=== PATIENT | female | born 1990 | race Caucasian/White ===

== ENCOUNTER → 2018-05-02 17:28 | Outpatient (CLI) | payer OTHER, SELFPAY ==
[2018-05-02 14:05] VITALS: BMI 44.6
[2018-05-06 12:55] LABS: HPV Reflexed? NOT INDICATED
== END ==
PROVIDERS: Visit Provider Obstetrics & Gynecology
DX: Z12.4 Encounter for screening for malignant neoplasm of cervix (principal)
CPT/HCPCS: 87624; 88175; G0145

== ENCOUNTER → 2020-05-27 16:38 | Outpatient (CLI) | payer BC, SELFPAY ==
[2020-05-27 14:01] VITALS: BMI 41.8
[2020-06-04 09:54] LABS: HPV APTIMA, High Risk Negative (Negative); HPV Reflexed? YES, CHARGE PATIENT
== END ==
PROVIDERS: Referring Provider Obstetrics & Gynecology; Visit Provider Obstetrics & Gynecology
DX: Z12.4 Encounter for screening for malignant neoplasm of cervix (principal)
CPT/HCPCS: 87624; 88175; G0145

== ENCOUNTER → 2020-07-29 09:28 | Outpatient (CLI) | payer BC, SELFPAY ==
[2020-07-29 09:21] VITALS: BMI 41.8
[2020-07-29 11:06] LABS: Progesterone Level 1.13 ng/mL (See Comment)
[2020-07-29 11:13] LABS: Anion Gap 3 (5-15); BUN 11 mg/dL (7-18); BUN/Creat Ratio 13.9 RATIO (10-20); Chloride 103 mmol/L (98-107); Cholesterol 267 mg/dL (200); Creatinine, Serum 0.79 mg/dL (0.55-1.02); EST Glomerular Filtration Rate 91 mL/min (>60); Est Glom Filt Rate - Afr Amer 110 mL/min (>60); Glucose 104 mg/dL (74-106); High Density Lipoprotein 64 mg/dL; Potassium 3.9 mmol/L (3.5-5.1); Sodium Level 137 mmol/L (136-145); Thyroid Stim Hormone (TSH) 1.35 uIU/mL (0.358-3.74); Triglycerides 64 mg/dL; Very Low Density Lipoprotein 13 mg/dL (5-40)
[2020-08-01 12:08] LABS: Testosterone, % Free 1.74 % (0.50-2.80)
[2020-08-01 15:35] LABS: Testosterone, Total 40 ng/dL (13-71)
[2020-08-06 09:33] LABS: 17-Hydroxyprogesterone 206 ng/dL (.)
== END ==
PROVIDERS: Referring Provider Obstetrics & Gynecology; Visit Provider Obstetrics & Gynecology
DX: L68.0 Hirsutism (principal); Z87.42 Personal history of other diseases of the female genital tract
CPT/HCPCS: 36415; 80048; 80061; 82306; 82627; 83498; 84144; 84402; 84403; 84443; 82626

== ENCOUNTER → 2021-10-08 | Outpatient (CLI) | payer OTHER, SELFPAY ==
[2021-10-13 14:15] LABS: HPV APTIMA, High Risk Negative (Negative)
== END | disposition home or self-care (01) ==
LOC: LABSPEC 10-09 08:16
PROVIDERS: Visit Provider Nurse Practitioner Women's Health
DX: Z12.4 Encounter for screening for malignant neoplasm of cervix (principal)
CPT/HCPCS: 87624; 88175; G0145

== ENCOUNTER 2022-01-08 19:04 | Emergency (ER) | payer OTHER, SELFPAY ==
[2022-01-08 19:05] VITALS: BP 132/95; PULSE 136; RESP 16; TEMP 36.7; O2SAT 97; BMI 44.9
[2022-01-08 19:17] VITALS: TEMP 38.5
--- NOTE | 2022-01-08 19:23 | RAD_ITS ---
STUDY: X-RAY CHEST REASON FOR EXAM: Female, 31 years old. CHEST PAIN cough and fever TECHNIQUE: XR Chest 1 View COMPARISON: None FINDINGS: There is no demonstrated pleural abnormality. Normal size heart. Normal mediastinum and kerry. Normal visualized pulmonary arteries. Normal visualized aortic arch and descending thoracic aorta. Normal visualized thoracic spine. Normal visualized ribs, clavicles, and shoulders. There is no demonstrated abnormality of the visualized soft tissue structures of the upper abdomen. RAD/Chest 1 View (Portable) IMPRESSION: There are no acute findings. Electronically Signed: Janak Azar MD at 19:37 EDT ,
--- NOTE | 2022-01-08 19:24 | EX.ED.DYSGE1 ---
HPI History of Present Illness Chief Complaint: General Illness Informant: patient Narrative Narrative: 1-year-old female presenting to the emergency room chief complaint of tachycardia. Patient states that she developed a fever up to 103 and has also had cough some sore throat and vomiting today. She denies any diarrhea ear pain or rashes. She notes a headache. She states that she went to the urgent care and they told her that her heart rate was high and that she should come to the emergency room. Here in the emergency room on the monitor during my examination her heart rate is 122 and she is febrile at 101.3. She is satting normally at 97 to 98%. No rashes. Significant other is not sick. [facility] Medical History PRASAD I (cervical intraepithelial neoplasia I) Home Medications citalopram 40 mg tablet 40 mg PO DAILY #90 tabs 10/08/21 [Rx Last Taken Unknown] norgestimate 0.25 mg-ethinyl estradiol 35 mcg tablet (Sprintec (28)) 1 tab PO DAILY #84 tabs 10/08/21 [Rx Last Taken Unknown] spironolactone 50 mg tablet 50 mg PO BID #180 tabs 10/08/21 [Rx Last Taken Unknown] Allergy/AdvReac Type Severity Reaction Status Date / Time penicillin G Allergy Mild stops Verified 01/08/22 19:19 breathing Family History Mother Asthma Father Hypertension Seizures Hyperlipidemia Depression Lupus Grandmother Colon cancer Grandfather Cancer pancreatic, liver Surgical History History of removal of ovarian cyst History of tonsillectomy Social History current occupational status: employed current occupation: [employer] Smoking Status: Never smoker alcohol intake: current details: social substance use type: does not use caffeine: Yes what type of physical activity do you participate in: other details: 20,000 steps per day at work seatbelt use: always do you feel safe at home: Yes additional social history: [employer] ROS ED Constitutional Constitutional ED: Reports chills and fever(s); Denies weight loss Eyes Eyes: Denies change in vision or diplopia ENT ENT ED: Reports sore throat; Denies ear pain or rhinorrhea Cardiovascular Cardiovascular: Denies chest pain, orthopnea, palpitations or racing heartbeat Respiratory/Chest Respiratory/Chest: Reports cough; Denies dyspnea or orthopnea Gastrointestinal Gastrointestinal: Reports nausea and vomiting; Denies abdominal pain or diarrhea Genitourinary Genitourinary ED: Denies dysuria, hematuria or urinary frequency Musculoskeletal Musculoskeletal: Reports back pain and myalgias; Denies arthralgias Integumentary Denies abscess or rash Neurologic Neurologic: Reports headache(s); Denies weakness Psychiatric Psychiatric: Denies anxiety, depression, suicidal ideation or suicidal thoughts Endocrine Endocrinology: Denies polydipsia, polyphagia or polyuria Allergic/Immunologic Allergic/Immunologic ED: Denies mouth swelling, tongue swelling or urticaria EXAM Physical Exam Const Vital Signs: 01/08/22 19:05 01/08/22 19:16 01/08/22 19:17 Temperature 98.1 F 101.3 F H Temperature Source Temporal Oral Pulse Rate 136 H Respiratory Rate 16 Respiratory Effort Normal Non-Labored Respiratory Pattern Normal Blood Pressure 132/95 H Blood Pressure Mean 107 Pulse Ox 97 Oxygen Delivery Method Room Air Positive well nourished and well developed General Appearance ED: well developed HEENT Reports normocephalic, head/scalp atraumatic and moist mucous membranes Eyes PERRL and EOMs intact bilaterally Neck no lymphadenopathy, supple and no JVD Resp normal respiratory effort and clear to auscultation bilaterally Cardio regular rate and no murmurs Rate: tachycardic GI normal to inspection, nondistended, normoactive bowel sounds and non-tender Palpation: soft Back/Spine no CVA tenderness and normal ROM Extremity normal to inspection General Extremety ED: Negative for edema General Extremity: Negative for edema Neuro oriented x3 and CN's II-XII intact bilaterally Sensorium / Orientation: alert Motor Exam: strength 5/5 throughout Psych mental status grossly normal Mood & Affect: Negative for depressed or tearful Skin no rashes or lesions noted and no wounds MDM MDM MDM Narrative Medical decision making narrative: Patient was placed on the monitor and she is in a sinus tachycardic rhythm. My interpretation of the chest x-ray is no acute process. The patient received a dose of Motrin as well as Zofran. Influenza and COVID testing was obtained and these were negative. Clinically I think the patient appears well. I believe her tachycardia is due to the fever. I do think she would get better with conservative treatment. Radiography Diagnostic Testing: Clinical Impression(s) from Imaging Studies Chest X-Ray 01/08/22 19:23 IMPRESSION: There are no acute findings. Electronically Signed: Janak Azar MD at 19:37 EDT Reading Location ID and State: [facility] / [place] , Service support , Discharge Plan Triage Chief Complaint: General Illness ED Provider: Lc Carrillo Dx/Rx/DC Orders Clinical Impression: Acute viral syndrome, Sinus tachycardia Instructions: ED Viral Syndrome (Adult) Prescriptions: No Action norgestimate-ethinyl estradiol [Sprintec (28)] 0.25-35 mg-mcg tablet 1 tab PO DAILY Qty: 84 4RF citalopram 40 mg tablet 40 mg PO DAILY Qty: 90 4RF spironolactone 50 mg tablet 50 mg PO BID Qty: 180 4RF Primary Care Provider: Care Physician,No Primary Referrals: Care Physician,No Primary [Primary Care Provider] - Disposition Disposition: Home, Self Care
[2022-01-08] MEDS: Ondansetron ODT 4 MG Tablet PO (19:30)
[2022-01-08] MEDS: Ibuprofen 400 MG Tablet 800 MG PO (19:31)
[2022-01-08 20:20] VITALS: TEMP 37.2
== END 2022-01-08 20:23 | disposition home or self-care (01) ==
PROVIDERS: Emergency Provider Emergency Medicine; Visit Provider Emergency Medicine
DX: B34.9 Viral infection, unspecified (principal); R00.0 Tachycardia, unspecified; R51.9 Headache, unspecified
CPT/HCPCS: 71045; 87428; 99284

== ENCOUNTER → 2022-10-12 | Outpatient (CLI) | payer OTHER, SELFPAY ==
[2022-10-15 22:07] LABS: HPV APTIMA, High Risk Negative (Negative)
== END | disposition home or self-care (01) ==
PROVIDERS: Visit Provider Obstetrics & Gynecology
DX: Z12.4 Encounter for screening for malignant neoplasm of cervix (principal)
CPT/HCPCS: 87624; 88175; G0145

== ENCOUNTER → 2024-01-14 | Outpatient (CLI) | payer BC, SELFPAY ==
[2024-01-14 12:27] LABS: Absolute Lymphocyte Count 2.55 X10^3/uL (0.83-4.51); Absolute Neutrophil Count 5.8 X10^3/uL (2.0-7.7); Basophil# 0.05 X10^3/uL; Basophil% 0.5 % (0-1); Eosinophil# 0.36 X10^3/uL; Eosinophils% 3.8 % (0-5); Hematocrit 42.4 % (37-47); Hemoglobin 13.8 g/dL (12.0-15.0); Lymphocyte # 2.55 X10^3/ul (0.83-4.51); Lymphocyte % 27.2 % (19-41); Mean Corp Hgb Conc 32.5 g/dL (32-36); Mean Corpuscular Hgb 28.5 pg (27.0-32.0); Mean Corpuscular Volume 87.6 fL (81-99); Monocyte# 0.53 X10^3/uL; Monocyte% 5.7 % (0-10); NRBC Flagged by Analyzer 0 % (0-5); Neutrophil # 5.84 X10^3/uL (2.7-7.7); Neutrophil % 62.5 % (47-70); Platelet Count 420 K/mm3 (150-450); RBC Distribution Width SD 41.5 fl (35.1-43.9); Red Blood Count 4.84 M/mm3 (4.2-5.4); White Blood Count 9.4 K/mm3 (4.4-11.0)
[2024-01-14 13:26] LABS: Hemoglobin A1c 6.8 % (3.8-5.6)
[2024-01-14 13:27] LABS: ALB/GLOB Ratio 1.1 RATIO (0.9-2.4); AST(SGOT) 16 U/L (15-37); Alanine Aminotransfer ALT/SGPT 27 U/L (13-56); Albumin, Serum 4.1 g/dL (3.2-5.0); Alkaline Phosphatase 58 U/L (45-117); Anion Gap 6 (5-15); BUN 9 mg/dL (7-18); BUN/Creat Ratio 10.6 RATIO (10-20); Calcium,Total 9.5 mg/dL (8.5-10.1); Chloride 106 mmol/L (98-107); Creatinine, Serum 0.85 mg/dL (0.55-1.02); EST Glomerular Filtration Rate 82 mL/min (>60); Est Glom Filt Rate - Afr Amer 99 mL/min (>60); Globulin 3.8 g/dL (2.2-4.2); Glucose 133 mg/dL (74-106); Potassium 3.9 mmol/L (3.5-5.1); Protein, Total 7.9 g/dL (6.4-8.2); Sodium Level 136 mmol/L (136-145)
[2024-01-22 16:09] LABS: Testosterone Free 1.8 pg/mL (0.0-4.2); Testosterone, % Free 1.94 % (0.50-2.80); Testosterone, Free 1.09 ng/dL (0.10-0.85); Testosterone, Total 56 ng/dL (8-60)
[2024-01-27 14:10] LABS: Vitamin D 1,25-Dihydroxy 38.6 pg/mL (24.8-81.5)
== END | disposition home or self-care (01) ==
PROVIDERS: Referring Provider Obstetrics & Gynecology; Visit Provider Obstetrics & Gynecology
DX: Z87.42 Personal history of other diseases of the female genital tract (principal)
CPT/HCPCS: 36415; 80053; 82627; 82652; 83036; 83498; 84402; 84403; 85025; 82626

== ENCOUNTER 2024-06-05 18:55 | Emergency (ER) | payer BC, SELFPAY ==
[2024-06-05 18:56] VITALS: BP 139/93; PULSE 108; RESP 16; TEMP 36.7; O2SAT 100; BMI 36.8
[2024-06-05 18:59] VITALS: BP 139/93; PULSE 108; RESP 16; TEMP 36.7; O2SAT 100
[2024-06-05 19:17] LABS: Absolute Lymphocyte Count 2.44 X10^3/uL (0.83-4.51); Absolute Neutrophil Count 7.5 X10^3/uL (2.0-7.7); Basophil# 0.04 X10^3/uL; Basophil% 0.4 % (0-1); Eosinophil# 0.03 X10^3/uL; Eosinophils% 0.3 % (0-5); Hematocrit 40.5 % (37-47); Lymphocyte # 2.44 X10^3/ul (0.83-4.51); Lymphocyte % 23.1 % (19-41); Mean Corp Hgb Conc 34.6 g/dL (32-36); Mean Corpuscular Hgb 29.2 pg (27.0-32.0); Mean Corpuscular Volume 84.4 fL (81-99); Mean Platelet Vol. 9.9 fl (6.2-12.0); Monocyte# 0.52 X10^3/uL; Monocyte% 4.9 % (0-10); NRBC Flagged by Analyzer 0 % (0-5); Neutrophil # 7.48 X10^3/uL (2.7-7.7); Neutrophil % 70.9 % (47-70); Platelet Count 415 K/mm3 (150-450); RBC Distribution Width CV 12.9 % (11.6-14.6); White Blood Count 10.6 K/mm3 (4.4-11.0)
[2024-06-05 19:27] LABS: Color, Urine Yellow (Yellow); Glucose, Dipstick Normal (Normal); Ketone-Dipstick 5 mg/dl (Negative); Leukocyte Esterase-Dipstick 25 /ul (Negative); Nitrite-Dipstick Negative (Negative); Occult Blood-Urine 10 /ul (Negative); Protein-Dipstick 30 mg/dl (Negative); Urine Clarity Sl. Cloudy (Clear); Urine Urobilinogen Normal (Normal)
[2024-06-05 19:29] LABS: Urine Bilirubin Dipstick 1 mg/dL (Negative)
[2024-06-05 19:41] LABS: Bacteria 2+ /hpf (None Seen); Mucous, Urine 2+ /hpf (<or=2+); Squamous Epithelial Cells - UA 0-5 SEEN /hpf (5-10); White Blood Cells 0-5 SEEN /hpf (0-5)
[2024-06-05 19:42] LABS: Red Blood Cells-Urine 0 SEEN /hpf (0-5)
--- NOTE | 2024-06-05 19:48 | EDS_ITS ---
HPI History of Present Illness Chief Complaint: Nausea/Vomiting Detail of Chief Complaint: Patient presents with pain right flank area radiating anteriorly with nause Informant: patient Onset/Context/Timing Onset: Today (Late this morning) Context: Sudden Onset Timing: Continuous and Waxes and wanes Quality: Pain Location: right flank radiating anteriorly Current Severity: Mild Maximum Severity: Moderate Worsened by: Nothing Relieved by: Nothing Associated Symptoms Associated Symptoms: Nausea and vomiting Narrative Narrative: Patient presents with abrupt onset of right flank pain rating anteriorly with nausea and vomiting. When I entered the room to examine her she was actively vomiting. She has no history of renal or ureteral calculi. She does have history of cervical intraepithelial neoplasm 1. She has question urgency no frequency dysuria or hematuria. There is no history of trauma. She has not noted a rash. She states she is sexually active. Is not use any form of control. Her last normal menses was 21 days ago. She has not had pain like this before. She has a history of diabetes and hirsutism. Prior similar symptoms: No Recent Illness/Hospitalization: No PFSH PFS Medical History PCOS (polycystic ovarian syndrome) PRASAD I (cervical intraepithelial neoplasia I) Home Medications ?Medication ?Instructions ?Recorded ?Last Taken ?Type citalopram 40 mg tablet 40 mg PO DAILY #30 TABLETS 0 12/07/23 Unknown Rx blood sugar diagnostic (Advanced #100 ea 01/14/24 Unkn own Rx Glucose Meter Test Strips) blood-glucose meter (Advanced #1 ea 01/14/24 Unknown R x Glucose Meter) lancets 30 gauge #100 ea 01/14/24 Unknown Rx metformin 500 mg tablet,extended 500 mg PO QDAY #30 ta bs 01/14/24 Unknown Rx release 24 hr multivitamin with minerals-folic tab PO DAILY 01/14/24 Unknown History acid 0.4 mg tablet Allergy/AdvReac Type Severity Reaction Status Date / Time penicillin G Allergy Mild stops Verified 06/05/24 18:56 breathing Family History Mother Asthma Father Hypertension Seizures Hyperlipidemia Depression Lupus Grandmother Colon cancer Grandfather Cancer pancreatic, liver Surgical History History of tonsillectomy History of removal of ovarian cyst Social History current occupational status: employed current occupation: [employer] Smoking Status: Never smoker alcohol intake: current details: social substance use type: does not use caffeine: Yes what type of physical activity do you participate in: other details: 20,000 steps per day at work seatbelt use: always do you feel safe at home: Yes additional social history: [employer] ROS ROS ED Constitutional Constitutional ED: Denies chills, fever(s), subjective, sweats or weight loss Eyes Eyes: Denies blurry vision or change in vision ENT ENT ED: Denies ear pain or rhinorrhea Cardiovascular Cardiovascular: Denies chest pain or palpitations Respiratory/Chest Respiratory/Chest: Denies cough, dyspnea or dyspnea on exertion Gastrointestinal Gastrointestinal: Reports abdominal pain, nausea and vomiting; Denies constipation, diarrhea or melena Genitourinary Genitourinary ED: Reports urinary frequency; Denies dysuria or hematuria Musculoskeletal Musculoskeletal: Denies arthralgias or myalgias Integumentary Denies rash Neurologic Neurologic: Denies headache(s) or paresthesias Psychiatric Psychiatric: Denies anxiety Endocrine Endocrinology: Denies cold intolerance or heat intolerance Hematologic/Lymphatic Hematologic/Lymphatic: Reports systems reviewed and no addt'l complaints, except as documented EXAM Physical Exam Const Vital Signs: 06/05/24 18:56 06/05/24 18:59 06/05/24 20:56 Temperature 98.1 F 98.1 F Temperature Source Oral Oral Pulse Rate 108 H 108 H Respiratory Rate 16 16 Blood Pressure 139/93 H 139/93 H 135/89 H Blood Pressure Mean 108 108 104 Pulse Ox 100 100 99 Oxygen Delivery Method Room Air Room Air Room Air 06/05/24 22:00 Temperature Temperature Source Pulse Rate 63 Respiratory Rate 17 Blood Pressure 109/62 Blood Pressure Mean 77 Pulse Ox 98 Oxygen Delivery Method Room Air Positive well nourished and well developed Constitutional Narrative: BMI is 36.9. Patient is actively vomiting. She is diaphoretic. General Appearance ED: well developed and pallor; Negative for cyanotic or diaphoretic HEENT Reports moist mucous membranes HEENT Narrative: Head is atraumatic normocephalic. Ears normal. Nares patent. Patient has hirsutism. Eyes PERRL and EOMs intact bilaterally General Eye ED: Negative for pale conjunctiva or scleral icterus Neck no lymphadenopathy, supple and no JVD Chest Wall inspection of chest normal Resp normal respiratory effort and clear to auscultation bilaterally Cardio regular rate, regular rhythm, S1 normal heart sound, S2 normal heart sound and no murmurs GI non-distended and no masses; Negative for non-tender or hepatosplenomegaly GI Narrative: Bowel sounds are diminished. There is no CVA tenderness. There is no right lower quadrant abdominal pain. She complains of pain now in the inguinal area. Palpation: soft Back/Spine no CVA tenderness Extremity normal to inspection General Extremety ED: Yes edema General Extremity: edema Neuro oriented x3 and CN's II-XII intact bilaterally Sensorium / Orientation: alert Psych mental status grossly normal Skin no rashes or lesions noted, no wounds and skin turgor normal General Skin Exam: elasticity normal and pallor; Negative for jaundice MDM MDM MDM Narrative Medical decision making narrative: Differential diagnosis includes flank pain of unknown etiology, obstructing ureteral stone, pelvic disease i.e. salpingitis, ovarian cyst which she has history of doubt pyelonephritis or complicated UTI. Unable to palpate a mass due to body habitus. This always needs to be in the consideration. Lab Data Attestation: I reviewed the patient's lab results. Lab results narrative: White count is normal. UA is remarkable for bacteriuria. Labs: Laboratory Results - last 24 hr 06/05/24 06/05/24 19:06 19:21 WBC 10.6 RBC 4.80 Hgb 14.0 Hct 40.5 MCV 84.4 MCH 29.2 MCHC 34.6 RDW Std Deviation 40.0 RDW Coeff of [place] 12.9 Plt Count 415 MPV 9.9 Immature Gran % (Auto) 0.400 Neut % (Auto) 70.9 H Lymph % (Auto) 23.1 [place] % (Auto) 4.9 Eos % (Auto) 0.3 Baso % (Auto) 0.4 Absolute Neuts (auto) 7.5 Absolute Lymphs (auto) 2.44 Nucleated RBC % 0 Sodium 139 Potassium 4.0 Chloride 104 Carbon Dioxide 21.1 Anion Gap 14 BUN 10 Creatinine 0.71 Estim Creat Clear Calc 137.03 Est GFR (MDRD) Non-Af 116 BUN/Creatinine Ratio 14.1 Glucose 155 H Calcium 9.5 Total Bilirubin 0.50 AST 17 ALT 15 Alkaline Phosphatase 52 Total Protein 7.1 Albumin 4.4 Globulin 2.7 Albumin/Globulin Ratio 1.6 Lipase 36 Serum , Qual NEGATIVE Urine Color Yellow Urine Clarity Sl. Cloudy Urine pH 5.0 Ur Specific [place] 1.030 Urine Protein 30 H Urine Glucose (UA) Normal Urine Ketones 5 H Urine Occult Blood 10 H Urine Nitrite Negative Urine Bilirubin 1 H Urine Urobilinogen Normal Ur Leukocyte Esterase 25 H Urine RBC 0 SEEN Urine WBC 0-5 SEEN Ur Squamous Epith Cells 0-5 SEEN Urine Bacteria 2+ Urine Mucus 2+ Radiography Diagnostic Testing: Clinical Impression(s) from Imaging Studies Abdomen/Pelvis CT 06/05/24 21:02 IMPRESSION: 10.5 x 18.910.6 cm mostly cystic multi-septated right adnexal mass with solid components along the septum and posterior wall as described above. Findings concerning for an ovarian origin mass. Differential considerations include an ovarian cystadenoma/serous cyst adenoma. Recommend gynecologic consult for further evaluation. Reading Location: [facility] Discussion w/another healthcare provider: Geospatial Scientist (Spoke with Dr. Krystin Drake regarding patient's CAT scan results. She recommended transfer tonight to [facility]. She will call who she knows up there. I asked the litigation legal secretary to call the transfer line. She did call back. She was told they may be a capacity issue. She states she would a) and Other (Spoke to transfer nurse and Dr. Smith the [facility] at [facility] who accepted patient.) Discharge Plan Triage Chief Complaint: Nausea/Vomiting Other Complaint: Flank Pain ED Provider: Darryl Loza Dx/Rx/DC Orders Clinical Impression: Mass of right ovary, Hirsutism, Diabetes, PRASAD I (cervical intraepithelial neoplasia I), BMI greater than 40, Nausea, vomiting and diarrhea, Abdominal pain, right lower quadrant Prescriptions: No Action multivit with min-folic acid 0.4 mg tablet PO DAILY (DME) blood-glucose meter [Advanced Glucose Meter] Misc See Rx Instructions .MEDSUPPLY Qty: 1 12RF Rx Instructions: As directed (DME) Advanced Gluc Meter Test Strip Strip See Rx Instructions .MEDSUPPLY Qty: 100 12RF Rx Instructions: As directed (DME) lancets 30 gauge misc See Rx Instructions .MEDSUPPLY Qty: 100 12RF Rx Instructions: As directed metformin 500 mg tablet extended release 24 hr 500 mg PO QDAY Qty: 30 12RF citalopram 40 mg tablet 40 mg PO DAILY Qty: 30 0RF Primary Care Provider: Care Physician,No Primary Referrals: Care Physician,No Primary [Primary Care Provider] - Print Language: Fijian Disposition Disposition: Acute Care Hospital Discharge Location: [facility]
[2024-06-05] MEDS: 0.9% Normal Saline (1000mL) 1,000 ML 1000 ML IV (20:01)
[2024-06-05] MEDS: Morphine 4 MG/ML Syringe IV (20:01)
[2024-06-05 20:04] LABS: ALB/GLOB Ratio 1.6 RATIO (0.9-2.4); AST(SGOT) 17 U/L (<=31); Alanine Aminotransfer ALT/SGPT 15 U/L (<=34); Albumin, Serum 4.4 g/dL (3.5-5.0); Alkaline Phosphatase 52 U/L (35-104); Anion Gap 14 (5-15); BUN 10 mg/dL (4-19); BUN/Creat Ratio 14.1 RATIO (10-20); Calcium,Total 9.5 mg/dL (7.6-11.0); Carbon Dioxide 21.1 mmol/L (21.0-32.0); Chloride 104 mmol/L (98-108); Creatinine, Serum 0.71 mg/dL (0.70-1.20); EST Glomerular Filtration Rate 116 (>60); Estimated Creatinine Clearance 137.03 ml/min (50-250); Globulin 2.7 g/dL (2.2-4.2); Glucose 155 mg/dL (70-99); Lipase 36 U/L (13-75); Protein, Total 7.1 g/dL (5.9-8.4); Sodium Level 139 mmol/L (133-145)
[2024-06-05 20:46] LABS: Internal QC Validated? YES +Cl - CLEAR BKGD; Pregnancy, Serum, hCG Quali. NEGATIVE Negative
[2024-06-05 20:56] VITALS: BP 135/89; O2SAT 99
--- NOTE | 2024-06-05 21:02 | CT_ITS ---
PROCEDURE: ABDOMEN/PELVIS WITHOUT CONT 06/05/2024 REASON FOR EXAM: RIGHT FLANK PAIN WITH NAUSEA AND VOMITING TECHNIQUE: Abdomen and pelvis CT without and with intravenous contrast. Coronal and Sagittal reconstruction series were provided. PATIENT PREPARATION: Per protocol ORAL CONTRAST TYPE: None. AMOUNT: mL One or more dose reduction techniques were used (e.g., Automated exposure control, adjustment of the mA and/or kV according to patient size, use of iterative reconstruction technique. COMPARISON: None FINDINGS: Lung bases: Few scattered calcified granulomas. Liver: Normal size. No mass. Gallbladder: No cholelithiasis or wall thickening. Spleen: Normal size. Pancreas: Normal size without evidence of mass surrounding inflammation or ductal dilation. Adrenals: Unremarkable. Kidneys: Normal renal sizes. No hydronephrosis. Bladder: Unremarkable Reproductive Organs: 10.5 x 18.9 x 12.6 cm (AP by T by cc) multi-septated cystic mass in the right hemipelvis (series 601 image 66, series 2, image 119). Solid components along the septum and posterior aspect of the mass are noted. The most likely represents from the right ovary. There is mild mass effect on surrounding structures, including surrounding bowel loops. 3.3 x 3.2 cm left adnexal cyst. Bowel: Small hiatal hernia. The stomach is otherwise unremarkable. No bowel dilation or wall thickening. Moderate colonic stool. Appendix: Normal Lymph nodes: No suspicious lymph node enlargement. Vasculature: The abdominal aorta and IVC are normal. Peritoneum / Retroperitoneum: No ascites no pneumoperitoneum. Bones: No suspicious osseous lesions. CT/Abdomen/Pelvis without Cont IMPRESSION: 10.5 x 18.910.6 cm mostly cystic multi-septated right adnexal mass with solid c omponents along the septum and posterior wall as described above. Findings concerning for an ovarian origin mass. Differential considerations include an ovarian cystadenoma/serous cyst adenoma. Recommend gynecologic consult for further jeanne luation. Reading Location: [facility]
[2024-06-05] MEDS: Ondansetron 4 MG/2 ML Vial IV (21:25)
[2024-06-05 22:00] VITALS: BP 109/62; PULSE 63; RESP 17; O2SAT 98
[2024-06-05 23:19] VITALS: BP 109/62; PULSE 63; RESP 17; TEMP 36.7; O2SAT 98
== END 2024-06-05 23:34 | disposition short-term general hospital (02) ==
PROVIDERS: Emergency Provider Emergency Medicine; Visit Provider Emergency Medicine
DX: N83.8 Other noninflammatory disorders of ovary, fallopian tube and broad ligament (principal); E11.9 Type 2 diabetes mellitus without complications; R11.2 Nausea with vomiting, unspecified; R19.7 Diarrhea, unspecified; N87.0 Mild cervical dysplasia; R21 Rash and other nonspecific skin eruption; L68.0 Hirsutism; R10.31 Right lower quadrant pain
CPT/HCPCS: 74176; 80053; 81001; 83690; 84703; 85025; 96361; 96374; 96375; 99285; A4216; J2405